=== PATIENT | male | born 1990 ===

== ENCOUNTER 2017-02-08 23:33 | Emergency (ER) | payer OTHER ==
[2017-02-08 23:45] VITALS: TEMP 98.4
--- NOTE | 2017-02-09 00:01 | EDPHY ---
H & P Stated Complaint: c/o nausea, tarry stool 2 days ago and again today Time Seen by Provider: 02/08/17 23:40 HPI/ROS: CHIEF COMPLAINT: concern for blood in the stools. Unaware of tachycardia seen as VS HISTORY OF PRESENT ILLNESS: 26-year-old male in otherwise good health. He really does not see his family doctor much as he is known to be healthy. Three days ago he had a couple episodes of diarrhea but he has had formed stool since. Two days ago he had a stool that was formed but had 1 segment that was black. There is no blood on the outside of the stool. Today he had another episode of some black within the matrix of the stool thus became concerned. He is planning to check with his family physician, however when he checked on the Internet that might be a sign of internal bleeding he decided come in to get evaluated. By a large she does not have any underlying gastric problems. He denies reflux , acid peptic disease, frequent use of antacids open (Tums once monthly) or constipation. Typical bowel habit is twice daily. No straining. He will occasionally have a sense of palpitation of heart skipping be but never of tachycardia. He is unaware of his heart rate being in the fast range at this point. While granted, he is a little concerned he would not be construed as being a hourly anxious. He denies any stimulants. He has had no weight loss or weight gain. Last coffee intake was at noon today, drinks "fair amount " of coffee, 36 oz in a day however he has only had 2 cups today REVIEW OF SYSTEMS: Constitutional: No fever, no chills. Episodic lightheadedness but not related to position changes or the palpitations he noted above, no more this past week than usual. Eyes: No discharge ENT: No sore throat. Cardiovascular: No chest pain, no palpitations. Respiratory: No cough, shortness of breath, or wheezing. Gastrointestinal: No abdominal pain. Genitourinary: No hematuria or frequency. Musculoskeletal: No back pain. Skin: No rashes. Neurological: No headache. 10 point ROS otherwise negative Source: Patient Exam Limitations: No limitations - Personal History Current Tetanus/Diphtheria Vaccine: No Current Tetanus Diphtheria and Acellular Pertussis (TDAP): No - Medical/Surgical History Hx Asthma: No Hx Chronic Respiratory Disease: No Hx Diabetes: No Hx Cardiac Disease: No Hx Renal Disease: No Hx Cirrhosis: No Hx Alcoholism: No Hx HIV/AIDS: No Hx Splenectomy or Spleen Trauma: No - Family History Significant Family History: No pertinent family hx - Social History Smoking Status: Never smoked Alcohol Use: Occasionally (1-2 beers a week. Rare Scotch.) Drug Use: None - Physical Exam Exam: General Appearance: Alert, no distress. Afebrile. Normal phonation. No respiratory distress. Nontoxic. Good color. Eyes: Pupils equal and round, no pallor or injection. No icterus ENT, Mouth: Mucous membranes moist. Pharynx without erythema or exudate. TM Clear. Neck: No adenopathy. Supple. No JVD. Trachea in midline. Respiratory: There are no retractions, lungs are clear to auscultation. Chest wall: Nontender to palpation. No crepitus. Cardiovascular: Regular rate and rhythm, tachycardic, heart rate 115, 125 moving in stretcher for examination Abdomen: Soft and nontender, no masses, bowel sounds normal. Rectal: Brown stool, sent for guaiac. Ultimately negative for occult blood Neurological: Ox3. No motor weakness. Sensation intact. Gait nl. Skin: Warm and dry, no rashes. Musculoskeletal: No joint swelling. Extremities: No edema. Homans sign negative. No cords. Psychiatric: Normal affect. Patient is oriented X 3. There is no agitation Constitutional: Initial Vital Signs Temperature (C) 36.9 C 02/08/17 23:43 Heart Rate 120 H 02/08/17 23:43 Respiratory Rate 14 02/08/17 23:43 Blood Pressure 167/101 H 02/08/17 23:43 O2 Sat (%) 100 02/08/17 23:43 O2 Delivery Mode Room Air Allergies/Adverse Reactions: No Known Allergies Allergy (Unverified 02/08/17 23:42) Home Medications: Medication Instructions Recorded NK [No Known Home Meds] 02/08/17 Medical Decision Making - Diagnostics EKG Interpretation: Ekg interpreted by me contemporaneously - See seperate report in [facility]. Summary: NSR, HR 106. Incomplete bundle-branch block. No enlargement. ED Course/Re-evaluation: Patient remained tachycardic despite reassurance. EKG showed incomplete right bundle branch block no signs of acute ischemia or Q-wave information. Stool occult blood was negative. WBC normal No anemia. Electrolytes: Normal Magnesium normal Given 2 L of saline for volume depletion. He and I discussed doing a chest x-ray to check for heart enlargement as an occult cardiomyopathy is a potential for this. However he would like to have pursue that with his family physician is concerned of due to insurance issues being perhaps out of network. Differential Diagnosis: Differential diagnosis includes, but is not limited to: Gastroenteritis, dehydration, substance abuse, caffeinism, GI Bleed, Diarrhea. - Data Points Laboratory Results: Laboratory Results 02/09/17 00:05 02/09/17 00:05 02/09/17 02/09/17 02/09/17 00:05 00:05 00:05 WBC RBC Hgb Hct MCV MCH MCHC RDW Plt Count MPV Neut % (Auto) Lymph % (Auto) Bartholomew % (Auto) Eos % (Auto) Baso % (Auto) Nucleat RBC Rel Count Absolute Neuts (auto) Absolute Lymphs (auto) Absolute Monos (auto) Absolute Eos (auto) Absolute Basos (auto) Absolute Nucleated RBC Immature Gran % Immature Gran # Sodium 142 mEq/L mEq/L (134-144) Potassium 4.0 mEq/L mEq/L (3.5-5.2) Chloride 104 mEq/L mEq/L (97-110) Carbon Dioxide 24 mEq/l mEq/l (22-31) Anion Gap 14 mEq/L mEq/L (8-16) BUN 17 mg/dL mg/dL (7-23) Creatinine 1.1 mg/dL mg/dL (0.7-1.3) Estimated GFR > 60 Glucose 105 mg/dL H mg/dL (70-100) Calcium 10.0 mg/dL mg/dL (8.5-10.4) Magnesium 1.7 mg/dL mg/dL (1.6-2.3) TSH 3.490 uIU/mL uIU/mL (0.465-4.680) Stool Occult Bld Scrn NEGATIVE (NEGATIVE) 02/09/17 00:05 WBC 10.97 10^3/uL H 10^3/uL (3.80-9.50) RBC 5.86 10^6/uL 10^6/uL (4.40-6.38) Hgb 16.7 g/dL g/dL (13.7-17.5) Hct 47.3 % % (40.0-51.0) MCV 80.7 fL L fL (81.5-99.8) MCH 28.5 pg pg (27.9-34.1) MCHC 35.3 g/dL g/dL (32.4-36.7) RDW 12.7 % % (11.5-15.2) Plt Count 267 10^3/uL 10^3/uL (150-400) MPV 10.2 fL fL (8.7-11.7) Neut % (Auto) 43.6 % % (39.3-74.2) Lymph % (Auto) 46.4 % H % (15.0-45.0) Bartholomew % (Auto) 6.7 % % (4.5-13.0) Eos % (Auto) 2.5 % % (0.6-7.6) Baso % (Auto) 0.5 % % (0.3-1.7) Nucleat RBC Rel Count 0.0 % % (0.0-0.2) Absolute Neuts (auto) 4.78 10^3/uL 10^3/uL (1.70-6.50) Absolute Lymphs (auto) 5.09 10^3/uL H 10^3/uL (1.00-3.00) Absolute Monos (auto) 0.74 10^3/uL 10^3/uL (0.30-0.80) Absolute Eos (auto) 0.27 10^3/uL 10^3/uL (0.03-0.40) Absolute Basos (auto) 0.06 10^3/uL 10^3/uL (0.02-0.10) Absolute Nucleated RBC 0.00 10^3/uL 10^3/uL (0-0.01) Immature Gran % 0.3 % % (0.0-1.1) Immature Gran # 0.03 10^3/uL 10^3/uL (0.00-0.10) Sodium Potassium Chloride Carbon Dioxide Anion Gap BUN Creatinine Estimated GFR Glucose Calcium Magnesium TSH Stool Occult Bld Scrn Medications Given: Discontinued Medications Sodium Chloride (Ns) 1,000 mls @ 0 mls/hr IV EDNOW ONE; Wide Open PRN Reason: Protocol Stop: 02/09/17 00:03 Last Admin: 02/09/17 00:14 Dose: 1,000 mls Sodium Chloride (Ns) 1,000 mls @ 0 mls/hr IV ONCE ONE; Wide Open PRN Reason: Protocol Stop: 02/09/17 01:04 Last Admin: 02/09/17 01:10 Dose: 1,000 mls Departure - Departure Disposition: Home, Routine, Self-Care Clinical Impression: Black stools, Tachycardia Condition: Good Instructions: Tachycardia (ED) Additional Instructions: You should check in with your family doctor later this week. Call Friday In the interim, your allowed to do minor walking however no strenuous chores. If he do feel lightheaded you're not drive. Referrals: Michelet Calderón MD [Medical Doctor] - As per Instructions Patient,NotPresent [Primary Care Provider] - As per Instructions
[2017-02-09] MEDS ORDERED: NS 1,000 ML IV ONE ×2 (00:02→01:03)
[2017-02-09 00:11] LABS: % IMMATURE GRANULYOCYTES 0.3 % (0.0-1.1); ABSOLUTE IMMATURE GRANULOCYTES 0.03 10^3/uL (0.00-0.10); ADD DIFF? NO; ADD MORPH? NO; ADD SCAN? NO; ATYPICAL LYMPHOCYTE FLAG 10 (0-99); FRAGMENT RBC FLAG 0 (0-99); HEMATOCRIT 47.3 % (40.0-51.0); HEMOGLOBIN 16.7 g/dL (13.7-17.5); LEFT SHIFT FLG 0 (0-99); LIPEMIA HEMOLYSIS FLAG 90 (0-99); MEAN CELL HEMOGLOBIN 28.5 pg (27.9-34.1); MEAN CELL HEMOGLOBIN CONCENTR. 35.3 g/dL (32.4-36.7); MEAN CELL VOLUME 80.7 fL (81.5-99.8); MEAN PLATELET VOLUME 10.2 fL (8.7-11.7); PLATELET CLUMPS FLAG 10 (0-99); PLATELET COUNT 267 10^3/uL (150-400); RED BLOOD CELL COUNT 5.86 10^6/uL (4.40-6.38); RED CELL DISTRIBUTION WIDTH 12.7 % (11.5-15.2)
--- NOTE | 2017-02-09 00:13 | CPEKG ---
Heart Rate: 106 RR Interval: 566 P-R Interval: 152 QRSD Interval: 110 QT Interval: 344 QTC Interval: 457 P Cache: 67 QRS Cache: 66 T Wave Cache: 42 EKG Severity - ABNORMAL ECG - EKG Impression: SINUS TACHYCARDIA EKG Impression: INCOMPLETE RIGHT BUNDLE BRANCH BLOCK Electronically Signed By: Shaun Hess 09-Feb-2017 02:18:17
[2017-02-09 00:21] LABS: ANION GAP 14 mEq/L (8-16); CARBON DIOXIDE 24 mEq/l (22-31); CHLORIDE 104 mEq/L (97-110); CREATININE 1.1 mg/dL (0.7-1.3); GLOMERULAR FILTRATION RATE > 60; GLUCOSE 105 mg/dL (70-100); MAGNESIUM 1.7 mg/dL (1.6-2.3); SODIUM 142 mEq/L (134-144)
[2017-02-09 02:33] VITALS: BP 153/102; PULSE 96; RESP 15; O2SAT 99
== END 2017-02-09 02:23 | disposition home or self-care (01) ==
LOC: CED 23:33
DX: R00.0 Tachycardia, unspecified (principal); K92.1 Melena; E86.9 Volume depletion, unspecified
CPT/HCPCS: 80048-PO; 82270-PO; 83735-PO; 84443-PO; 85025-PO